=== PATIENT | male | born 1985 | race Caucasian/White ===

== ENCOUNTER → 2018-04-01 07:59 | Outpatient (CLI) | payer SELFPAY ==
[2018-04-01 10:46] LABS: Alanine Aminotransferase 32 U/L (12-78); Albumin Level 3.6 gm/dL (3.4-5.0); Albumin/Globulin Ratio 1.2 (1.1-1.8); Alkaline Phosphatase 119 U/L (46-116); Anion Gap 10.3 mEq/L (5-15); Aspartate Amino Transferase 15 U/L (15-37); Bilirubin,Total 0.2 mg/dL (0.2-1.0); Blood Urea Nitrogen 18 mg/dL (7-18); Calcium 8.5 mg/dL (8.5-10.1); Carbon Dioxide 29 mmol/L (21.0-32.0); Chloride 106 mmol/L (98-107); Creatinine,Serum 1.09 mg/dL (0.70-1.30); Estimated Glomerular Filt Rate 77 ml/min (>60); GFR (African American) 94 ML/MIN (>60); Globulin 2.9 gm/dl (1.3-3.2); Glucose 93 mg/dL (74-106); Potassium 4.3 mmoL/L (3.5-5.1); Sodium 141 mmol/L (136-145); Total Protein,Serum 6.5 gm/dL (6.4-8.2)
[2018-04-02 16:05] LABS: Rapid Plasma Reagin Ab Titer Non Reactive (NonRea<1:1)
== END ==
PROVIDERS: PCP Internal Medicine Adolescent Medicine; Visit Provider Radiology Diagnostic Radiology
DX: R94.31 Abnormal electrocardiogram [ECG] [EKG] (principal); I45.81 Long QT syndrome; F11.20 Opioid dependence, uncomplicated; Z11.3 Encounter for screening for infections with a predominantly sexual mode of transmission; Z13.0 Encounter for screening for diseases of the blood and blood-forming organs and certain disorders involving the immune mechanism
CPT/HCPCS: 36415; 80053; 86592; 93005

== ENCOUNTER 2021-05-24 19:20 | Emergency (ER) | payer MEDICAID, SELFPAY ==
[2021-05-24 19:08] VITALS: BP 125/77; PULSE 112; RESP 18; TEMP 36.7; O2SAT 100; BMI 32.5
--- NOTE | 2021-05-24 19:27 | PC.NURSE ---
Pt did not want to take vistaril because it makes him feel like he's drunk. This RN told pt he did not have to take it. Pt states he feels like he is calming down and wants to hold off on taking anything for right now. aware.
--- NOTE | 2021-05-24 19:31 | ECG_ITS ---
APPROVED REPORT Exam: Resting ECG HR:111 bpm ECG Measurements Heart Rate 111 AXES VA 96 P QRSd 104 QRS -12 QT 476 T 42 QTc 647 Conclusion Sinus tachycardia with short VA Incomplete right bundle branch block Inferior infarct, age undetermined Cannot rule out Anterior infarct, age undetermined Abnormal ECG Electronically signed by : Laith Askew MD 05/26/2021 17:50:27
--- NOTE | 2021-05-24 19:39 | [facility].EDGENADL ---
ED Disposition Clinical Impression: Acute anxiety Disposition: Home, Self-Care Condition on Discharge: Good Instructions: Anxiety Disorders Additional Instructions: Call PCP/mental health provider for follow-up appointment in the morning. Return to emergency department for thoughts of self-harm or harm to others. Referrals: Carolyn Amezquita [Primary Care Provider] - (1 day) Time of Disposition: 19:43 - Critical Care Critical Care Time: No Attestation: On 05/24/21, the high probability of a clinically significant, sudden or life threatening deterioration of the following system(s) required my full and direct attention, intervention and personal management. The time I documented below is in addition to time spent performing reported procedures but includes the following listed in this critical care notation. Medical Decision Making - Medical Records Medical records reviewed: Yes: I reviewed the patient's medical records. - [place] Inquiry Pt receiving controlled substance: No Vital Signs: 05/24/21 19:08 Temperature 98.1 F Temperature Source Oral Pulse Rate [Right Radial] 112 H Respiratory Rate 18 Blood Pressure [Right Arm] 125/77 Blood Pressure Mean [Right Arm] 93 Blood Pressure Source [Right Arm] Automatic Cuff Blood Pressure Position [Right Arm] Sitting 02 Sat by Pulse Oximetry 100 Oxygen Delivery Method Room Air Orders (Tests/Meds): ED MEDICATIONS Discontinued Medications Generic Name Dose Route Start Last Admin Trade Name Freq PRN Reason Stop Dose Admin Hydroxyzine Pamoate 50 mg 05/24/21 19:17 Hydroxyzine Pamoate 25mg Capsule PO 05/24/21 19:18 ONCE ONE ORDERS Category Date Time Status EKG Request [ECG Request by /Khris] Stat Y 05/24/21 19:34 Ordered - ECG Data Tracing #1 I reviewed this ECG and interpreted as documented below: Sinus tachycardia, 100 limb beats per minute. Incomplete right bundle octavio. No ST elevation or depression. QT of 476. ECG initial impression date: 05/24/21 ECG initial impression time: 19:15 Medical Decision Narrative: Patient evaluated for longstanding anxiety. He is in no acute distress on initial evaluation. He is sitting in the bed resting comfortably. Patient was offered hydroxyzine for better symptom management but he declined stating that make him feel funny. 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 EKG is reviewed as above. Patient is appropriate stable for discharge home. General Adult HPI - General Chief complaint: Anxiety Stated complaint: Anxiety Time Seen by Provider: 05/24/21 19:39 Mode of Arrival: EMS Limitations: No Limitations Description of Symptoms (Recalled from ER Triage Doc. by RN): Pt reports onset of anxiety attack an hour prior to arrival while sitting at home. Pt reports numbness in BUE. He denies SOA. Denies chest pain. Denies N/V/D. Denies fevers or pain. Denies triggers for anxiety. Pt has hx of axniety attacks. - History of Present Illness HPI narrative: 36yo M arrives the emergency department via EMS for anxiety. Patient has a history of anxiety attacks. States that usually are not this bad. He reports taking all of his home medication as directed. He denies any recent illness. He denies any thoughts of self-harm or harm to others. - Related Data Home Medications Medication Instructions Recorded Confirmed Citalopram Hydrobromide 40 mg PO DAILY 05/24/21 05/24/21 [Citalopram HBr] Methadone HCl [Methadose] 125 mg PO DAILY 05/24/21 05/24/21 lisinopriL [Lisinopril] 10 mg PO DAILY 05/24/21 05/24/21 Allergies Allergy/AdvReac Type Severity Reaction Status Date / Time penicillin G [PENICILLIN G] Allergy Unknown Verified 05/24/21 19:21 [facility] History - Hepatitis A Screen Drug use history?: No High risk sexual behaviors?: No History of sexually transmitted infection?: No Currently employed?: No Childcare worker?: No Do you have ind
[2021-05-24 20:00] VITALS: BP 138/76; PULSE 100; O2SAT 97
[2021-05-24 20:23] VITALS: BP 137/83; PULSE 102; RESP 18; TEMP 36.6; O2SAT 98
== END 2021-05-24 20:26 | disposition home or self-care (01) ==
PROVIDERS: Emergency Provider Family Medicine; PCP Nurse Practitioner Family
DX: F41.9 Anxiety disorder, unspecified (principal); Z88.0 Allergy status to penicillin; Z79.899 Other long term (current) drug therapy
CPT/HCPCS: 93005; 99282